=== PATIENT | female | born 1980 | race Hispanic/Latino ===

== ENCOUNTER 2016-11-08 23:11 | Inpatient (IN) | payer MEDICAID ==
[2016-11-08 23:20] VITALS: O2SAT 98
--- NOTE | 2016-11-08 23:25 | ED PDOC ---
Psych Transfer Clearance - Clearance Statement Clearance Statement: Reviewed vital signs, lab results and transfer papers. Patient clinically stable for psychiatric admission.
[2016-11-09] MEDS ORDERED: DiphenhydrAMINE 50 mg/ml Inj IM PRN (00:05)
[2016-11-09] MEDS ORDERED: Alum-Mag Hydrox-Simethicone Susp (30 mL) PO PRN (00:05)
[2016-11-09] MEDS ORDERED: Magnesium Hydroxide Susp 30 ml UD PO PRN (00:05)
[2016-11-09] MEDS ORDERED: oxyCODONE 20 mg ER Tab (oxyCONTIN) PO ONE (11:06)
--- NOTE | 2016-11-09 11:10 | PCM.PSYCH ---
Initial Psychiatric Evaluation - Initial Psychiatric Evaluation Type of Admission: Voluntary Legal Status: Capacity Chief Complaint (in patient's own words): i am in pain Patient's Reaction to Hospitalization: cooperative History of Present Illness and Precipitating Events: please see handwritten initial assessment done during [facility] down time which occurred while attempt to enter this assessment Current Medications: Active Medications Generic Name Dose Route Start Last Admin Trade Name Freq PRN Reason Stop Dose Admin Acetaminophen 650 mg 11/09/16 00:05 Tylenol 325mg Tab PO Q4 PRN pain 4-7 Al Hydrox/Mg Hydrox/Simethicone 30 ml 11/09/16 00:05 Maalox Plus 30 Ml PO Q4 PRN Dyspepsia Diphenhydramine HCl 50 mg 11/09/16 00:05 Benadryl IM Q6 PRN Extrapyramidal S/S Unable PO Diphenhydramine HCl 50 mg 11/09/16 00:05 Benadryl PO Q6 PRN Extrapyramidal Symptoms Diphenhydramine HCl 50 mg 11/09/16 00:07 Benadryl PO HS PRN Sleep Gabapentin 300 mg 11/09/16 13:00 Neurontin PO TID TIARA Haloperidol 5 mg 11/09/16 00:05 Haldol PO Q4 PRN Agitation Haloperidol Lactate 5 mg 11/09/16 00:05 Haldol IM Q4 PRN Agitation, Unable to Take PO Lorazepam 2 mg 11/09/16 00:05 Ativan IM Q4 PRN Anxiety/Agitation,Unable PO Lorazepam 2 mg 11/09/16 00:05 11/09/16 10:10 Ativan PO 2 mg Q4 PRN Administration Anxiety/Agitation Magnesium Hydroxide 30 ml 11/09/16 00:05 Milk Of Magnesia PO HS PRN Constipation Mirtazapine 15 mg 11/09/16 22:00 Remeron PO HS TIARA Nicotine 1 patch 11/09/16 09:00 Nicoderm Cq TD DAILY TIARA Oxycodone HCl 20 mg 11/09/16 11:06 Oxycontin Extended Release Tab PO 11/09/16 11:07 ONCE ONE Sertraline HCl 25 mg 11/09/16 11:15 Zoloft PO DAILY TIARA Past Psychiatric History - Past Psychiatric History Pertinent Medical Hx (Current Medical&Sleep Prob, Allergies): Allergies Allergy/AdvReac Type Severity Reaction Status Date / Time No Known Allergies Allergy Unverified 11/08/16 13:18 Gabapentin 300 mg PO TID 11/08/16 Nortriptyline 10 mg PO TID 11/08/16 Soma 700 mg PO BID 11/08/16 oxyCODONE 60 mg PO Q4 11/08/16
[2016-11-09] MEDS ORDERED: oxyCODONE 10 mg Immediate Release Tab PO STA ×2 (12:15→18:15)
[2016-11-09] MEDS ORDERED: oxyCODONE 10 mg Immediate Release Tab ONE (12:18)
--- NOTE | 2016-11-09 15:27 | CP.PCM.PCO ---
Physician Communication Note - Physician Communication Note Physician Communication Note: see handwritten initial psych association done during downtime
--- NOTE | 2016-11-09 15:35 | CP.PCM.CON ---
History of Present Illness - History of Present Illness History of Present Illness: 36 yo female with history of Fibromyalgia, depression and anxiety admitted to psyche unit because of worsening depression. Review of Systems - Review of Systems All systems: reviewed and no additional remarkable complaints except (aside from those mentioned above, 12 point system review were negative by me) Past Patient History - Tetanus Immunizations Tetanus Immunization: Unknown - Past Medical History & Family History Past Family History: Reviewed and not pertinent - Past Social History Smoking Status: Heavy Smoker > 10 Cigarettes Daily Chewing Tobacco Use: No Cigar Use: No Alcohol: None Drugs: Denies - CARDIAC Hx Cardiac Disorders: No Hx Hypertension: No - PULMONARY Hx Respiratory Disorders: No Hx Tuberculosis: No - NEUROLOGICAL Hx Neurological Disorder: No HX Cerebrovascular Accident: No Hx Seizures: No - HEENT Hx HEENT Problems: No - RENAL Hx Chronic Kidney Disease: No - ENDOCRINE/METABOLIC Hx Endocrine Disorders: No - HEMATOLOGICAL/ONCOLOGICAL Hx Blood Disorders: No Hx Cancer: No Hx Human Immunodeficiency Virus (HIV): No - INTEGUMENTARY Hx Dermatological Problems: No - MUSCULOSKELETAL/RHEUMATOLOGICAL Hx Musculoskeletal Disorders: No Other/Comment: Fibromyalgia x 10 years - GASTROINTESTINAL Hx Gastrointestinal Disorders: No - GENITOURINARY/GYNECOLOGICAL Hx Genitourinary Disorders: No Hx Sexually Transmitted Disorders: No - PSYCHIATRIC Hx Anxiety: Yes Hx Depression: Yes Hx Substance Use: No - SURGICAL HISTORY Hx Section: Yes (03/25/2012) - ANESTHESIA Hx Anesthesia: Yes Hx Anesthesia Reactions: No Meds Allergies/Adverse Reactions: Allergies Allergy/AdvReac Type Severity Reaction Status Date / Time No Known Allergies Allergy Unverified 11/08/16 13:18 - Medications Medications: Current Medications Acetaminophen (Tylenol 325mg Tab) 650 mg PO Q4 PRN PRN Reason: pain 4-7 Al Hydrox/Mg Hydrox/Simethicone (Maalox Plus 30 Ml) 30 ml PO Q4 PRN PRN Reason: Dyspepsia Diphenhydramine HCl (Benadryl) 50 mg IM Q6 PRN PRN Reason: Extrapyramidal S/S Unable PO Diphenhydramine HCl (Benadryl) 50 mg PO Q6 PRN PRN Reason: Extrapyramidal Symptoms Diphenhydramine HCl (Benadryl) 50 mg PO HS PRN PRN Reason: Sleep Gabapentin (Neurontin) 300 mg PO TID [facility] Last Admin: 11/09/16 14:41 Dose: 300 mg Haloperidol (Haldol) 5 mg PO Q4 PRN PRN Reason: Agitation Haloperidol Lactate (Haldol) 5 mg IM Q4 PRN PRN Reason: Agitation, Unable to Take PO Lorazepam (Ativan) 2 mg IM Q4 PRN PRN Reason: Anxiety/Agitation,Unable PO Lorazepam (Ativan) 2 mg PO Q4 PRN PRN Reason: Anxiety/Agitation Last Admin: 11/09/16 10:10 Dose: 2 mg Magnesium Hydroxide (Milk Of Magnesia) 30 ml PO HS PRN PRN Reason: Constipation Mirtazapine (Remeron) 15 mg PO HS [facility] Nicotine (Nicoderm Cq) 1 patch TD DAILY [facility] Last Admin: 11/09/16 10:00 Dose: 1 patch Sertraline HCl (Zoloft) 25 mg PO DAILY [facility] Last Admin: 11/09/16 12:00 Dose: 25 mg Physical Exam - Constitutional Appears: No Acute Distress - Head Exam Head Exam: ATRAUMATIC - Eye Exam Eye Exam: Normal appearance - ENT Exam ENT Exam: Mucous Membranes Moist - Neck Exam Neck exam: Negative for: Meningismus - Respiratory Exam Respiratory Exam: absent: Rhonchi, Wheezes, Respiratory Distress - Cardiovascular Exam Cardiovascular Exam: REGULAR RHYTHM, +S1, +S2 - GI/Abdominal Exam GI & Abdominal Exam: Soft. absent: Tenderness - Rectal Exam Rectal Exam: Deferred - Extremities Exam Extremities exam: Negative for: pedal edema - Neurological Exam Neurological exam: Alert, Oriented x3 - Psychiatric Exam Psychiatric exam: Normal Affect - Skin Skin Exam: Dry, Intact Results - Vital Signs Recent Vital Signs: Last Vital Signs Temp 97.5 F L 11/09/16 09:00 Pulse 95 H 11/09/16 09:00 Resp 20 11/09/16 09:00 BP 118/76 11/09/16 09:00 Pulse Ox 98 11/08/16 23:17 - Labs Labs: Laboratory Results - last 24 hr 11/09/16 11/09/16 06:53 06:53 Hemoglobin A1c 5.0 Triglycerides 98 Cholesterol 208 H LDL Cholesterol Direct 82 HDL Cholesterol 94 H Total T3 0.887 L Assessment & Plan (1) Depression Status: Acute Comment: psyche is managing
[2016-11-09] MEDS ORDERED: oxyCODONE 10 mg Immediate Release Tab PO PRN (16:32)
--- NOTE | 2016-11-09 20:20 | CP.PCM.PN ---
Subjective - Date & Time of Evaluation Date of Evaluation: 11/09/16 Time of Evaluation: 17:30 - Subjective Subjective: Acute Pain (On-Call) 36y/o F with pmhx significant for depression, fibromyalgia and chronic back pain. Patient admitted earlier today to psychiatric service and pain consult requested. Patient seen and evaluated, reported moderate-severe pain (regular pain) and pain meds re-started. Discussed with Dr. Burton. Objective - Vital Signs/Intake and Output Vital Signs (last 24 hours): Temp Pulse Resp BP Pulse Ox 97.1 F L 89 18 100/62 98 11/09/16 16:54 11/09/16 16:54 11/09/16 16:54 11/09/16 16:54 11/08/16 23:17 - Medications Medications: Current Medications Acetaminophen (Tylenol 325mg Tab) 650 mg PO Q4 PRN PRN Reason: pain 4-7 Al Hydrox/Mg Hydrox/Simethicone (Maalox Plus 30 Ml) 30 ml PO Q4 PRN PRN Reason: Dyspepsia Cyclobenzaprine HCl (Flexeril) 10 mg PO HS PRN PRN Reason: Muscle spasm Diphenhydramine HCl (Benadryl) 50 mg IM Q6 PRN PRN Reason: Extrapyramidal S/S Unable PO Diphenhydramine HCl (Benadryl) 50 mg PO Q6 PRN PRN Reason: Extrapyramidal Symptoms Diphenhydramine HCl (Benadryl) 50 mg PO HS PRN PRN Reason: Sleep Gabapentin (Neurontin) 300 mg PO TID [facility] Last Admin: 11/09/16 18:00 Dose: 300 mg Haloperidol (Haldol) 5 mg PO Q4 PRN PRN Reason: Agitation Haloperidol Lactate (Haldol) 5 mg IM Q4 PRN PRN Reason: Agitation, Unable to Take PO Lorazepam (Ativan) 2 mg IM Q4 PRN PRN Reason: Anxiety/Agitation,Unable PO Lorazepam (Ativan) 2 mg PO Q4 PRN PRN Reason: Anxiety/Agitation Last Admin: 11/09/16 18:41 Dose: 2 mg Magnesium Hydroxide (Milk Of Magnesia) 30 ml PO HS PRN PRN Reason: Constipation Mirtazapine (Remeron) 15 mg PO HS [facility] Nicotine (Nicoderm Cq) 1 patch TD DAILY [facility] Last Admin: 11/09/16 10:00 Dose: 1 patch Oxycodone HCl (Oxycodone Immediate Release Tab) 60 mg PO Q6 PRN PRN Reason: Pain, severe (8-10) Sertraline HCl (Zoloft) 25 mg PO DAILY [facility] Last Admin: 11/09/16 12:00 Dose: 25 mg
[2016-11-10] MEDS: oxyCODONE 10 mg Immediate Release Tab PO PRN ×3 (05:07→18:04)
[2016-11-10] MEDS ORDERED: oxyCODONE 10 mg Immediate Release Tab PO PRN (07:00)
--- NOTE | 2016-11-10 09:06 | CP.PCM.PN ---
Subjective - Date & Time of Evaluation Date of Evaluation: 11/10/16 Time of Evaluation: 08:30 - Subjective Subjective: 36 yo woman w/ chronic pain, admitted for depression, is referred for pain management. Patient was placed on Roxicodone 60mg q6h PRN by Dr. Barreto overnight. Patient is on Neurontin and Nortriptyline as well. Patient has a long and complicated history of chronic pain, and had been at one time on much higher dose medication and until recently receiving intermittent injections. She has pain diffusely, but the most prominent area involves the lower back and the pain/paresthesia run down both legs. Objective - Vital Signs/Intake and Output Vital Signs (last 24 hours): Temp Pulse Resp BP Pulse Ox 97.1 F L 84 20 130/78 98 11/09/16 16:54 11/10/16 05:00 11/10/16 05:00 11/10/16 05:00 11/08/16 23:17 - Medications Medications: Current Medications Acetaminophen (Tylenol 325mg Tab) 650 mg PO Q4 PRN PRN Reason: pain 4-7 Al Hydrox/Mg Hydrox/Simethicone (Maalox Plus 30 Ml) 30 ml PO Q4 PRN PRN Reason: Dyspepsia Cyclobenzaprine HCl (Flexeril) 10 mg PO HS PRN PRN Reason: Muscle spasm Diphenhydramine HCl (Benadryl) 50 mg IM Q6 PRN PRN Reason: Extrapyramidal S/S Unable PO Diphenhydramine HCl (Benadryl) 50 mg PO Q6 PRN PRN Reason: Extrapyramidal Symptoms Diphenhydramine HCl (Benadryl) 50 mg PO HS PRN PRN Reason: Sleep Gabapentin (Neurontin) 600 mg PO TID TIARA Haloperidol (Haldol) 5 mg PO Q4 PRN PRN Reason: Agitation Haloperidol Lactate (Haldol) 5 mg IM Q4 PRN PRN Reason: Agitation, Unable to Take PO Lorazepam (Ativan) 2 mg IM Q4 PRN PRN Reason: Anxiety/Agitation,Unable PO Lorazepam (Ativan) 2 mg PO Q4 PRN PRN Reason: Anxiety/Agitation Last Admin: 11/10/16 08:52 Dose: 2 mg Magnesium Hydroxide (Milk Of Magnesia) 30 ml PO HS PRN PRN Reason: Constipation Nicotine (Nicoderm Cq) 1 patch TD DAILY [facility] Last Admin: 11/10/16 08:49 Dose: 1 patch Nortriptyline HCl (Pamelor) 10 mg PO HS TIARA Oxycodone HCl (Oxycodone Immediate Release Tab) 60 mg PO Q6 PRN PRN Reason: Pain, severe (8-10) Last Admin: 11/10/16 05:07 Dose: 60 mg Sertraline HCl (Zoloft) 25 mg PO DAILY [facility] Last Admin: 11/10/16 08:50 Dose: 25 mg - Cardiovascular Exam Cardiovascular Exam: REGULAR RHYTHM - GI/Abdominal Exam GI & Abdominal Exam: Soft - Back Exam Back Exam: paraspinal tenderness, vertebral tenderness Assessment and Plan - Assessment and Plan (Free Text) Assessment: 36 yo woman w/ depression, chronic pain. - continue current opioid regimen for now, but patient advised to further wean down to 30mg q6h PRN - increase Neurontin to 600mg q8h - can increase Doxepin to 25mg qhs - trial of Clonidine 0.1mg q8h PRN for withdrawal
--- NOTE | 2016-11-10 12:17 | PCM.PYCHPN ---
Psychiatric Progress Note - Psychiatric Progress Note Patient seen today, length of contact: discussed with team Patient Chief Complaint: i have anxiety Problems Identified/Issues Discussed: pt seen in treatment team. also saw pt with pain management. pt is focused on somatic symptoms. focused on anxiety. pt with rapid speech, anxiety. seems pessimistic about other forms of treatment beside medications being able to help her. note to be drinking a superbiggulp sized diet pepsi which she did not see as possibly contributing to her anxiety. she is also c.o feeling that her hands hurt since starting neurontin. she denies suicidal thoughts. does report neurontin was helpful with her sleep last night. notes her appetite is improved. Medical Problems: chronic pain Medication Change: Yes Medical Record Reviewed: No Consults ordered or reviewed: appreciate pain management consult Mental Status Examination - Cognitive Function Orientation: Person, Place, Situation, Time Memory: Intact Attention: WNL Concentration: WNL Association: [facility] Fund of Knowledge: [facility] Decription of patient's judgement and insights: fair - Mood Mood: Depressed, Anxious - Affect Affect: Other (tearful/anxious) - Speech Speech: Pressured - Formal Thought Process Formal Thought Process: No Impairment Psychotic Thoughts and Behaviors: denies a/v hallucinations - Suicidal Ideation Suicidal Ideation: No - Homicidal Ideation Homicidal Ideation: No Goal/Treatment Plan - Goal/Treatment Plan Need for Continued Stay: Remain at risks for inpatient hospitalization, Severe functional impairment Progress Toward Problem(s) and Goals/Treatment Plan: major depression recurrent moderate panic disorder will continue current treatment with increase in zoloft tomorrow encourage pt to use coping skills, educated pt regarding other treatments- mildfulness, cbt, etc appreciate pain management input will replace ativan with klonopin at pt request refer to outpt therapy when mood stabilizes Estimated Date of D/C: 11/14/16
[2016-11-11] MEDS: oxyCODONE 10 mg Immediate Release Tab PO PRN ×4 (01:31→22:01)
--- NOTE | 2016-11-11 17:00 | PCM.PYCHPN ---
Psychiatric Progress Note - Psychiatric Progress Note Patient seen today, length of contact: discussed with team Patient Chief Complaint: alteration mood Problems Identified/Issues Discussed: alteration in mood, alteration in pain control, alteration in coping Medical Problems: per chart reports 15 year hx of pain management reported 2nd to reported spinal pain, reportedly has spinal md and pain management in [facility] Diagnostic Results: per psychiatry per medicine per nursing per social work DSM 5 Symptoms Update: reports anxiety is somewhat improving as somewhat insomnia Medication Change: Yes Medical Record Reviewed: No Mental Status Examination - Cognitive Function Orientation: Person, Place, Situation, Time Memory: Intact Attention: WNL Concentration: WNL Association: WN Fund of Knowledge: [facility] Decription of patient's judgement and insights: impaired - Mood Mood: Depressed, Anxious - Affect Affect: Other (tearful/anxious) - Speech Speech: Appropriate, Soft - Formal Thought Process Formal Thought Process: No Impairment - Suicidal Ideation Suicidal Ideation: No - Homicidal Ideation Homicidal Ideation: No Goal/Treatment Plan - Goal/Treatment Plan Need for Continued Stay: Remain at risks for inpatient hospitalization, Severe functional impairment Progress Toward Problem(s) and Goals/Treatment Plan: inpt milieu adjust meds per status vital signs and clinical observation per clinical status and protocol discharge planning in progress follow up per pain management Estimated Date of D/C: 11/14/16 - Smoking Cessation Smoking Cessation Initiated: No Reason for not providing: defers
[2016-11-12] MEDS: oxyCODONE 10 mg Immediate Release Tab PO PRN ×2 (08:27→15:15)
[2016-11-12] MEDS: MULTIVITAMIN GUMMY PO SCH (08:44)
[2016-11-12 11:04] LABS: ALB/GLOB RATIO 1.5 (1.0-2.1); ALKALINE PHOSPHATASE 73 U/L (38-126); ALT/SGPT 29 U/L (9-52); AST/SGOT 26 U/L (14-36); BILIRUBIN,TOTAL 0.4 mg/dl (0.2-1.3); BLOOD UREA NITROGEN 10 mg/dl (7-17); CALCIUM 9.3 mg/dL (8.4-10.2); CARBON DIOXIDE 27 mmol/L (22-30); CHLORIDE 101 mmol/L (98-107); GFR AFRICAN-AMERICAN > 60; GLUCOSE,RANDOM 96 mg/dL (65-105); POTASSIUM 4.8 MMOL/L (3.6-5.0); SODIUM 139 mmol/l (132-148); TOTAL PROTEIN 7.6 G/DL (6.3-8.2)
[2016-11-12 11:18] LABS: T4 7.22 ug/dl (5.5-11.0)
[2016-11-12 11:32] LABS: THYROID STIMULATING HORMONE 1.53 mIU/ML (0.46-4.68)
--- NOTE | 2016-11-12 16:45 | CON ---
DATE: 11/12/2016 ROOM: 319 This is a 36-year-old female with longstanding history of fibromyalgia with underlying generalized an xiety and depression who presents here because of worsening dysphoria and depressive symptoms with ho pelessness and agitation, and is now being referred for evaluation of abnormal thyroid function dasha sturat. PAST MEDICAL HISTORY: As mentioned above, history of generalized anxiety and depression. Also, hist ory of fibromyalgia and has been on narcotic analgesics using oxycodone at 60 mg every 4 hours as not ed. She is also on gabapentin at 300 mg t.i.d. and nortriptyline at 10 mg t.i.d. As mentioned above , history of chronic schizoaffective disorder with previous admissions for major depression. FAMILY HISTORY: No known thyroid endocrinopathy, but positive for hypertension and heart disease. SOCIAL HISTORY: The patient has a supportive family. No known substance use. REVIEW OF SYSTEMS: As mentioned above, admits to episodic dizziness and lightheadedness with easy fa tigability and tiredness and suboptimal energy level. No chest pains or palpitations or PNDs. Her o ral intake has been variable with nausea, dyspepsia, and vague upper abdominal pains with habitual co nstipation. PHYSICAL EXAMINATION: GENERAL: This is an average built female, in no apparent distress. VITAL SIGNS: Blood pressure of 140/80, pulse of 70 beats per minute, regular, temperature 98, respir ations 20. Height is 5 feet 9 inches, weight is 174 pounds. HEENT: Head normocephalic. Eyes anicteric with pink conjunctivae. Fundoscopy not possible at this time. Ears, nose and throat otherwise normal. NECK: Supple. Thyroid gland is normal size. No carotid bruits or any cervical adenopathy. CARDIOPULMONARY: Some adynamic precordium. S1, S2 is rapid and regular. LUNGS: Clear to auscultation. ABDOMEN: Flat, soft with positive bowel sounds. EXTREMITIES: No peripheral edema. Pulses are +2 bilaterally. LABORATORIES: Chemistries showed an A1c of 5.0 and a total T3 of 0.887. No other chemistries are av ailable nor any other thyroid studies available. ASSESSMENT: This is a 36-year-old female with major depression on the background of chronic schizoaf fective disorder, undergoing closer psychiatric evaluation and management as noted. She also is clin ically euthyroid and biochemically has evidence of the so-called acute sick euthyroid syndrome with a low normal T3 level. There is no TSH value to ascertain and determine her actual thyroid status at this time. PLAN OF MANAGEMENT: As discussed with the patient and the staff, we will obtain a more comprehensive thyroid hormonal profile with a total T4 and free T4 and TSH value as ordered. We will also order t hyroid antibodies to exclude any underlying thyroid autoimmunity. There is no indication at this eliezer e for any kind of thyroid pharmacotherapy. Mary Ellen Lira MD cc: [id number] TT: 11/12/2016 16:43:56 Confirmation # [id number] Dictation # [id number]
--- NOTE | 2016-11-12 21:52 | PCM.PYCHPN ---
Psychiatric Progress Note - Psychiatric Progress Note Patient seen today, length of contact: discussed with team Patient Chief Complaint: alteration mood still depressed somewhat improved Problems Identified/Issues Discussed: alteration in mood, alteration in pain control, alteration in coping Medical Problems: per chart reports 15 year hx of pain management reported 2nd to reported spinal pain, reportedly has spinal md and pain management in [facility] Diagnostic Results: per psychiatry per medicine per nursing per social work Medication Change: Yes (sertraline to 75mg ) Medical Record Reviewed: No Consults ordered or reviewed: pain management, building surveyor Mental Status Examination - Cognitive Function Orientation: Person, Place, Situation, Time Memory: Intact Attention: WNL Concentration: WNL Association: WN Fund of Knowledge: [facility] Decription of patient's judgement and insights: impaired - Mood Mood: Depressed - Affect Affect: Other (tearful/anxious) - Speech Speech: Appropriate, Soft - Formal Thought Process Formal Thought Process: No Impairment - Suicidal Ideation Suicidal Ideation: No - Homicidal Ideation Homicidal Ideation: No Goal/Treatment Plan - Goal/Treatment Plan Need for Continued Stay: Remain at risks for inpatient hospitalization, Severe functional impairment Progress Toward Problem(s) and Goals/Treatment Plan: inpt milieu adjust meds per status will increase 75mg vital signs and clinical observation per clinical status and protocol discharge planning in progress follow up per pain management Estimated Date of D/C: 11/14/16 - Smoking Cessation Smoking Cessation Initiated: No Reason for not providing: deferred
[2016-11-13] MEDS: oxyCODONE 10 mg Immediate Release Tab PO PRN ×2 (01:37→07:46)
[2016-11-13] MEDS: COLCHICINE 0.6 MG CAPSULE PO SCH ×2 (01:39→08:21)
[2016-11-13] MEDS: MULTIVITAMIN GUMMY PO SCH (09:10)
[2016-11-13] MEDS ORDERED: COLCHICINE 0.6 MG CAPSULE PO ONE (11:10)
--- NOTE | 2016-11-13 11:18 | PCM.PYCHPN ---
Psychiatric Progress Note - Psychiatric Progress Note Patient seen today, length of contact: discussed with team Patient Chief Complaint: my gout is bad Problems Identified/Issues Discussed: pt c/o pain. has trouble sleeping. remains anxious. states the cholciine is not enough to help her. Medical Problems: chronic pain, gout flare Medication Change: No ( ) Medical Record Reviewed: No Mental Status Examination - Cognitive Function Orientation: Person, Place, Situation, Time Memory: Intact Attention: WNL Concentration: WNL Association: WNL Fund of Knowledge: [facility] Decription of patient's judgement and insights: fair - Mood Mood: Depressed, Anxious - Affect Affect: Broad - Speech Speech: Appropriate, Soft - Formal Thought Process Formal Thought Process: No Impairment Psychotic Thoughts and Behaviors: denies a/v hallucinations - Suicidal Ideation Suicidal Ideation: No - Homicidal Ideation Homicidal Ideation: No Goal/Treatment Plan - Goal/Treatment Plan Need for Continued Stay: Remain at risks for inpatient hospitalization, Severe functional impairment Progress Toward Problem(s) and Goals/Treatment Plan: major depression recurrent moderate panic disorder will continue current treatment give extra colcicine- rn to call hospitalist regarding pt's gout. encourage pt to use coping skills, educated pt regarding other treatments- mildfulness, cbt, etc appreciate pain management input Estimated Date of D/C: 11/14/16
--- NOTE | 2016-11-13 12:49 | PN ---
DATE: 11/13/2016 This is a 36-year-old female with generalized anxiety and depression, admitted here with worsening ma debra depressive symptoms and currently undergoing psychiatric evaluation and management. She remains clinically euthyroid and also biochemically euthyroid at this time. The repeat thyroid study showed a T4 of 7.22 with a free T4 of 1.0 and a TSH of 1.53. The low T3 level is indicative of the so-noble d acute sick euthyroid syndrome. No indication at this time for any kind of thyroid pharmacotherapy and should expect normalization of her thyroid indices as her clinical condition improves. We jessy graham. Mary Ellen Lira MD cc: [id number] TT: 11/13/2016 12:48:33 Confirmation # [id number] Dictation # [id number]
[2016-11-13] MEDS: oxyCODONE 40 mg ER Tab (oxyCONTIN) PO PRN (15:23)
[2016-11-14] MEDS: oxyCODONE 40 mg ER Tab (oxyCONTIN) PO PRN ×2 (02:16→14:27)
[2016-11-14] MEDS: COLCHICINE 0.6 MG CAPSULE PO SCH (09:29)
[2016-11-14] MEDS: MULTIVITAMIN GUMMY PO SCH (09:29)
--- NOTE | 2016-11-14 13:08 | PCM.PYCHPN ---
Psychiatric Progress Note - Psychiatric Progress Note Patient seen today, length of contact: discussed with team Patient Chief Complaint: my gout is still bad Problems Identified/Issues Discussed: pt still c/o pain from gout. still has trouble sleeping. pt remains anxious. states the gout med is not enough to help her. she isolates in room. demanding of staff and seems to always be disappointed with treatment. she is upset that pain meds have been changed. more focused on medical and pain than on mental health. Medical Problems: chronic pain, gout flare Medication Change: No ( ) Medical Record Reviewed: No Mental Status Examination - Cognitive Function Orientation: Person, Place, Situation, Time Memory: Intact Attention: WNL Concentration: WNL Association: WN Fund of Knowledge: [facility] Decription of patient's judgement and insights: fair - Mood Mood: Depressed, Anxious - Affect Affect: Broad - Speech Speech: Appropriate, Soft - Formal Thought Process Formal Thought Process: No Impairment Psychotic Thoughts and Behaviors: denies a/v hallucinations - Suicidal Ideation Suicidal Ideation: No - Homicidal Ideation Homicidal Ideation: No Goal/Treatment Plan - Goal/Treatment Plan Need for Continued Stay: Remain at risks for inpatient hospitalization, Severe functional impairment Progress Toward Problem(s) and Goals/Treatment Plan: major depression recurrent moderate panic disorder will continue current treatment call hospitalist regarding pt's gout. encourage pt to use coping skills, educated pt regarding other treatments- mildfulness, cbt, etc appreciate pain management input Estimated Date of D/C: 11/14/16
[2016-11-15] MEDS: oxyCODONE 40 mg ER Tab (oxyCONTIN) PO PRN (05:19)
--- NOTE | 2016-11-15 08:34 | PN ---
DATE: 11/14/2016 ROOM: 319. SUBJECTIVE: This is a 36-year-old female with recent generalized anxiety and depression with longsta nding fibromyalgia and is now being followed closely for metabolic management. Her latest chemistry showed a BUN of 10, sodium 139, potassium 4.8, chloride 101, CO2 27, glucose 96, and creatinine 0.7. Her latest thyroid study showed a T4 of 7.22 with a TSH of 1.53 and a T3 of 0.887 and a free T4 of 1 .00. She is clinically and biochemically euthyroid. I should expect normalization of her thyroid in dices as her clinical condition improves. No indication at this time for any kind of thyroid pharmac otherapy as we are dealing with a so-called acute sick euthyroid syndrome, which is improved accordin gly over time. Mary Ellen Lira MD cc: [id number] TT: 11/14/2016 15:13:26 Confirmation # [id number] Dictation # [id number] [email or web address]
[2016-11-15] MEDS: MULTIVITAMIN GUMMY PO SCH (09:16)
[2016-11-15 09:51] VITALS: BP 119/75; PULSE 92; RESP 20; TEMP 98.1
--- NOTE | 2016-11-15 09:54 | RAD ---
PROCEDURE: Right Ankle Radiographs. HISTORY: recent fall COMPARISON: None FINDINGS: BONES: Normal. No fracture. JOINTS: Normal. No osteoarthritis. Ankle mortise maintained. Talar dome intact SOFT TISSUES: Normal. OTHER FINDINGS: None. IMPRESSION: Normal right ankle radiographs.
--- NOTE | 2016-11-15 13:57 | PCM.PYCHDC ---
Mental Status Examination - Mental Status Examination Orientation: Person, Place, Situation, Time Memory: Intact Mood: Anxious Affect: Broad Speech: Appropriate Attention: WNL Concentration: WNL Association: WNL Fund of Knowledge: WNL Formal Thought Process: No Impairment Description of patient's judgement and insight: superficial insight, minimizing her issues regarding chemical dependence Psychotic Thoughts and Behaviors: denies a/v hallucinations Suicidal Ideation: No Current Homicidal Ideation?: No Plan: denies suicidal or homicidal thoughts/plans or intent Discharge Summary - Discharge Note Reason for Hospitalization: anxiety, panic, depression in context of housing, medical stressors Psychiatric History (includes Medical, Family, Personal Hx): history of treatment for depression. history of suicidal behaviors in past. Consultations:: List each consultation separately and include: 1. Reason for request. 2. Findings. 3. Follow-up Consultations: appreciate pain management consult, medicine consult Summary of Hospital Course include:: 1. Description of specific treatment plan utilized for patients during their course of treatmen. 2. Summarize the time- course for resolution of acute symptoms and/or regressed behaviors. 3. Describe issues identified and worked on during hospitalization. 4. Describe medication utilized. 5. Describe medical problems identified and treated. 6. Reassessment of suicide risk Summary of Hospital Course: please see handwritten initial assessment done during [facility] down time which occurred while attempt to enter this assessment hospital course: pt was admitted to [facility] and oriented to the unit. she was seen by hospitalist and was seen by pain management. she was started back on her home pain regimine , but strongly encouraged to work on lowering the dose and informed that aftercare would be hard to find on her high dosages of medications. she was very resistant to changing/lowering medications. pain management also put pt on clonidine/ in terms of her psych treatment: pt was started on zoloft and dose titrated to 75mg with no c/o side effects pt was started on remeron which she states helped her sleep. pt was started on klonopin and this was discontinued after pt was c/o feeling weak and "fell" pt did not attend any groups for a variety of reasonss- too much pain, etc. pt was given information about alternative treatment for anxiety and encouraged to reduce her intake of caffeine- drinks 64ounces of diet coke at a time. pt did not think this was a problem and stated she would not stop. pt's peer reported pt stated to him that she knew she was manipulative and could get "any drug i need"- pt denies this. pt was seen by hospitalist for medical nees including gout. pt was observed to have a fall, which appeared to be controlled and not with loss of consciousness. she was referred to medical sales consultant. testing was done and unremarkable. pt was confronted with her lack of participation in groups, her continued focus on her pain medications, her potential interactions with pain meds and anxiety meds in context of her not wanting to make lifestyle changes or participate in therapeutic activities here. after this discussion she asked if she could call her and be discharged she was denying suicidal or homicidal thoughts at the time of discharge. - Final Diagnosis (DSM 5) Condition upon Discharge: GOOD DSM 5: major depression recurrent moderate panic disorder opioid dependence Disposition: HOME/ ROUTINE Follow-up Treatment Plan: follow up with aftercare appointments as directed take medications as prescribed do not use alcohol, tobacco or other illicit substances call 911 if any suicidal or homicidal thoughts see your primary care doctor for your pain medications and medical treatment pt stated she had her oxycodone prescriptions at home. Prescriptions/Medication Reconciliation: Mirtazapine [Remeron] 15 mg PO HS #15 tab Sertraline [Zoloft] 75 mg PO DAILY #45 tab - Smoking Cessation Smoking Cessation Medication prescribed: No Reason for not providing: declines - Antipsychotic Medications Pt discharged on 2 or more routine antipsychotic medications: No
--- NOTE | 2016-11-15 16:12 | PN ---
DATE: 11/15/2016 ROOM: 319 SUBJECTIVE: This is a 36-year-old female with recent major depression and has been followed closely at the psychiatric unit and is also being followed for metabolic management because of recent abnorma l thyroid studies. LABORATORY DATA: She remains clinically euthyroid and the repeat thyroid study showed a T4 of 7.22 w ith a TSH of 1.53 and a total T3 of 0.887. IMPRESSION: This is indicative of the so-called acute sick euthyroid syndrome. PLAN: No indication at this time for any kind of thyroid pharmacotherapy and should improve biochemi giuseppe as her clinical status improves. Mary Ellen Lira MD cc: [phone] TT: 11/15/2016 16:11:50 Confirmation # [id number] Dictation # [id number] [email or web address]
== END 2016-11-15 14:08 | disposition home or self-care (01) | DRG 430 ==
LOC: H.ER 23:11 → H.PSYCH 23:24
PROVIDERS: ADMIT Psychiatry & Neurology Psychiatry; ATTEND Psychiatry & Neurology Psychiatry
PROC: GZHZZZZ Group Psychotherapy (ICD-10-PCS; principal; 2016-11-08)
PROC: GZ58ZZZ Individual Psychotherapy, Cognitive-Behavioral (ICD-10-PCS; 2016-11-08)
DX: F33.1 Major depressive disorder, recurrent, moderate (principal); F11.20 Opioid dependence, uncomplicated; F41.0 Panic disorder [episodic paroxysmal anxiety]; M79.7 Fibromyalgia; G89.29 Other chronic pain; E07.81 Sick-euthyroid syndrome; M10.9 Gout, unspecified; G47.00 Insomnia, unspecified; F17.210 Nicotine dependence, cigarettes, uncomplicated